=== PATIENT | male | born 1960 | race Caucasian/White ===

== ENCOUNTER → 2017-06-15 | Outpatient (CLI) | payer BC ==
--- NOTE | 2017-06-15 14:07 | NM ---
EXAMINATION TYPE: NM bone scan whole body DATE OF EXAM: 06/15/2017 COMPARISON: NONE HISTORY: Pain in joint, M25.59 left knee pain Delayed whole-body scanning was performed following the injection of 25.3 mCi Tc 99m MDP. Images acq uired 3 hours post injection. FINDINGS: There is abnormal increased radio pharmaceutical uptake involving the left knee. Increased uptake als o noted within the shoulders, the, ankles, wrists and hands. Sternoclavicular joints also shows uptak e. Soft tissue uptake is normal. There is some uptake within the thoracic spine which is likely due t o degenerative change. Uptake present within the right hip greater than left. IMPRESSION: Findings likely represent arthropathy. Recommend plain film correlation.
== END | disposition home or self-care (01) ==
LOC: RADNMMAIN 09:49
PROVIDERS: ATTEND Internal Medicine Rheumatology
DX: M25.50 Pain in unspecified joint (principal)
CPT/HCPCS: 78306; A9503

== ENCOUNTER 2019-07-27 06:08 | Day surgery (SDC) | payer BC ==
[2019-07-26 10:20] VITALS: BMI 36.6
[~2019-07-27 06:08] MED LIST: LACTATED RINGERS 1,000 ML IV SCH
[2019-07-27 06:57] LABS: Glucose,Whole Blood 121 mg/dL (75-99)
[2019-07-27 06:59] VITALS: RESP 20; TEMP 97.6
[2019-07-27] MEDS ORDERED: PROPOFOL 10 MG/ML 20 ML VIAL IV ONE (07:06)
[2019-07-27] MEDS ORDERED: LIDOCAINE 1% INJ 10MG/ML (20 ML MDV) ONE (07:06)
--- NOTE | 2019-07-27 07:24 | P.PCN ---
Date of Procedure: 07/27/19 Procedure(s) Performed: BRIEF HISTORY: Patient is a 59-year-old, pleasant, male, scheduled for an upper endoscopy as a part of evaluation of dysphagia for the last 4 weeks' duration. He was recently diagnosed with metastatic liver disease. PROCEDURE PERFORMED: Esophagogastroduodenoscopy with biopsy. PREOPERATIVE DIAGNOSIS: Progressive dysphagia to solids and liver metastasis. IV sedation per anesthesia. PROCEDURE: After informed consent was obtained, the patient was brought into the endoscopy unit. IV sedation was administered by Anesthesia under continuous monitoring. Initially the Olympus GIF-140 video endoscope was inserted into the mouth. Esophagus intubated without any difficulty. It was gradually advanced into the distal esophagus. There was a significant thickening of the distal esophageal folds extending from 40-47 cm from the incisors with relative esophageal narrowing and with gentle manipulation I was able to advance scope stomach and duodenum and carefully examined. The bulb and the second part of the duodenum appeared normal. The scope at this time was withdrawn to the stomach, adequately insufflated with air, and upon careful examination, mucosa of the antrum, body, fundus appeared normal. In the cardia of the stomach there was ulcerated area with significantly thickened and edematous mucosa suspicious for neoplasm and multiple biopsies were done from this area. The scope was then withdrawn into the esophagus. The GE junction was located at 47 cm from the in cisors. In the distal esophagus extending from 43-47 cm from the incisors there was a thickened mucosal fold suspicious for infiltrating neoplasm and multiple biopsies were done from this area. The rest of esophagus appeared normal. There were no erosions or ulcerations seen and the patient tolerated the procedure well. IMPRESSION: 1. Ulcerated lesion in the cardia of the stomach suspicious for neoplasm status post multiple biopsies. 2. Significant thickened folds in the distal esophagus with esophageal narrowing extending from 43-47 cm from the incisors suspicious for infiltrating neoplasm it is most biopsy. RECOMMENDATIONS: The findings of this examination were discussed with the patient as well as his family. He was advised to follow with the biopsy results and follow with Dr. Melendrez next week.. Because of the progressive dysphagia to solids he may benefit from an esophageal stent placement in the near future.
[2019-07-27 07:49] VITALS: BP 144/84; PULSE 70
== END 2019-07-27 08:37 | disposition home or self-care (01) ==
LOC: ORWHC2ENDO 06:08
PROVIDERS: ATTEND Internal Medicine Gastroenterology
DX: C16.0 Malignant neoplasm of cardia (principal); C78.7 Secondary malignant neoplasm of liver and intrahepatic bile duct; I10 Essential (primary) hypertension; E78.5 Hyperlipidemia, unspecified; E11.9 Type 2 diabetes mellitus without complications; K21.9 Gastro-esophageal reflux disease without esophagitis; K22.2 Esophageal obstruction; Z88.0 Allergy status to penicillin; Z79.899 Other long term (current) drug therapy; Z79.84 Long term (current) use of oral hypoglycemic drugs; Z79.82 Long term (current) use of aspirin
CPT/HCPCS: 88305; 43239; J2001; J2704

== ENCOUNTER → 2019-09-18 | Outpatient (CLI) | payer BC ==
--- NOTE | 2019-09-18 16:13 | NM ---
EXAMINATION TYPE: NM bone scan whole body DATE OF EXAM: 09/18/2019 COMPARISON: Prior bone scan 06/15/2017 HISTORY: Gastric cancer, back pain Delayed whole-body scanning was performed following the injection of 25 mCi Tc 99m MDP. Images acqui red 3 hours post injection. FINDINGS: There is a focus of hypermetabolic uptake seen within the posterior right fifth rib, possibly lateral right third rib which was not seen on prior exam. Soft tissue uptake is normal. Uptake within the kn ees, shoulders, sternoclavicular joints is likely due to arthropathy. Maxilla and mandible activity i s likely due to periodontal disease. IMPRESSION: Focus of hypermetabolic uptake in the posterior right rib, consider CT correlation, correlate to excl ude traumatic change. Metastasis not excluded.
== END | disposition home or self-care (01) ==
LOC: RADNMMAIN 10:46
PROVIDERS: ATTEND Internal Medicine Hematology & Oncology
DX: Z03.89 Encounter for observation for other suspected diseases and conditions ruled out (principal); C16.2 Malignant neoplasm of body of stomach; R93.7 Abnormal findings on diagnostic imaging of other parts of musculoskeletal system; M54.9 Dorsalgia, unspecified
CPT/HCPCS: 78306; A9503

== ENCOUNTER → 2019-09-28 | Outpatient (CLI) | payer BC ==
[2019-09-28 14:44] LABS: African American GFR (CKD) >90 (>60 ml/min/1.73 sqM); Blood Urea Nitrogen 10 mg/dL (9-20)
--- NOTE | 2019-09-28 15:47 | CT ---
EXAMINATION TYPE: CT ChestAbdPelvis w con DATE OF EXAM: 09/28/2019 COMPARISON: None HISTORY: Gastric ca CT DLP: 2249.10 mGycm CONTRAST: CT scan of the chest, abdomen and pelvis is performed with Oral Contrast and with IV Contrast, patien t injected with 100 mL of Isovue 300. CT Chest: LUNGS: The lungs are clear and free of infiltrate or atelectasis. No pulmonary nodule or mass is det ected. Scattered calcified nodules compatible with remote granulomatous disease. No pleural effusion or CT evidence of interstitial lung disease. MEDIASTINUM: Thoracic aorta is of normal caliber. The heart is not enlarged. No evidence for media stinal mass or adenopathy. Right hilar mediastinal lymph nodes. HILAR STRUCTURES: No evidence for mass. No hilar adenopathy is appreciated. OTHER: No significant abnormality. CONTRAST CT ABDOMEN AND PELVIS FINDINGS: LIVER/GB: There is evidence of hepatic steatosis. The gallbladder is contracted and does demonstrat e small gallstone. Within the periphery of the medial segment left hepatic lobe there is a 2.3 cm are a of heterogenous attenuation. While this could reflect an area of focal fat I cannot exclude a metas tatic lesion. Consider MRI correlation. Biliary tree is of normal caliber. PANCREAS: No inflammation. No distinct mass. SPLEEN: No splenic enlargement. No lesion seen. ADRENALS: No nodule. No thickening. KIDNEYS/BLADDER: No hydronephrosis. No nephrolithiasis. No distinct renal mass. BOWEL: Circumferential wall thickening involving the gastric cardia and GE junction compatible with t he provided history of gastric carcinoma. Mass measures an estimated 5.9 x 5.3 cm. GENITAL ORGANS: No gross abnormality. LYMPH NODES: Gastrohepatic ligament is lymph node mass noted measuring 6.6 x 5.2 cm. Periportal lymph node mass measuring 3.5 cm. AORTA: No significant abnormality. OSSEOUS STRUCTURES: No significant abnormality is seen. OTHER: No significant additional abnormality is seen. IMPRESSION: 1. Gastric mass compatible with the provided history of gastric carcinoma. 2. Lymph node masses in the region of the gastrohepatic ligament and bakari hepatitis regions. 3. I cannot exclude a lesion within the liver medial segment left hepatic lobe versus a focus of fat. Consider further evaluation with a PET/CT and/or MRI. 4. Remote granulomatous disease.
== END | disposition home or self-care (01) ==
LOC: RADPROMAIN 13:38
PROVIDERS: ATTEND Internal Medicine Hematology & Oncology
DX: R19.09 Other intra-abdominal and pelvic swelling, mass and lump (principal); L92.9 Granulomatous disorder of the skin and subcutaneous tissue, unspecified; C16.2 Malignant neoplasm of body of stomach; Z88.0 Allergy status to penicillin
CPT/HCPCS: 82565; 84520; 71260; 74177; 36415; Q9967 ×2